=== PATIENT | male | born 1960 | race Caucasian/White ===

== ENCOUNTER 2024-11-29 08:27 | Outpatient (CLI) | payer MEDICARE, SELFPAY ==
--- NOTE | 2024-11-29 08:30 | RT.EKG_ITS ---
APPROVED REPORT Exam: Resting ECG Reason for Exam: HIGH RISK MEDICATION USE Patient Location: O HR:74 bpm ECG Measurements Heart Rate 74 AXIS SD 166 P 47 QRSd 100 QRS -54 QT 444 T 59 QTc 493 Conclusion Sinus rhythm...normal P axis, V-rate 50- 99 Left anterior fascicular block...axis(240,-40), init forces inf
== END 2024-11-29 08:28 | disposition home or self-care (01) ==
LOC: CARDOPNVT 08:27
PROVIDERS: Visit Provider Family Medicine
DX: Z79.899 Other long term (current) drug therapy (principal)
CPT/HCPCS: 93005; 93010

== ENCOUNTER 2025-02-15 09:10 | Emergency (ER) | payer MEDICARE, SELFPAY ==
[2025-02-15 09:12] VITALS: BP 142/79; PULSE 84; RESP 18; TEMP 36.4; O2SAT 96
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
== END 2025-02-15 09:43 | disposition home or self-care (01) ==
LOC: ER 09:51
PROVIDERS: Emergency Provider Emergency Medicine
DX: Z76.0 Encounter for issue of repeat prescription (principal); I10 Essential (primary) hypertension; G40.909 Epilepsy, unspecified, not intractable, without status epilepticus
CPT/HCPCS: 99282

== ENCOUNTER 2025-03-17 06:23 | Emergency (ER) | payer MEDICARE, SELFPAY ==
[2025-03-17] VITALS (71 sets, daily range): BP systolic 100–161; BP diastolic 54–117; PULSE 71–137; RESP 10–24; TEMP 36.1; O2SAT 2–100
--- NOTE | 2025-03-17 06:15 | RT.EKG_ITS ---
APPROVED REPORT Exam: Resting ECG Reason for Exam: [facility] Patient Location: E HR:104 bpm ECG Measurements Heart Rate 104 AXIS ID 185 P -15 QRSd 102 QRS -33 QT 378 T 37 QTc 498 Conclusion Sinus tachycardia...rate> 99 Incomplete RBBB and LAFB...axis(240,-40), S>R II III aVF Low voltage, precordial leads...precordial leads <1.0mV Nonspecific ST-T changes
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
[2025-03-17 06:48] LABS: Abs Immature Grans 0.03 10^3/uL (0.0-0.06); Absolute Basophil Count 0.03 10^3/uL (0.0-0.2); Absolute Eosinophil Count 0.17 10^3/uL (0.0-0.7); Absolute Lymphocyte Count 2.19 10^3/uL (1.2-3.4); Absolute Monocyte Count 0.66 10^3/uL (0.1-0.8); Absolute Neutrophil Count 4.54 10^3/uL (1.2-6.7); Basophils % 0.4 %; Eosinophils % 2.2 %; HCT 31.3 % (40.0-50.0); HGB 10.5 g/dL (13.5-17.5); Immature Grans % 0.4 %; Lymphocytes % 28.7 %; MCH 31.3 pg (27.0-33.0); MCHC 33.5 % (32.0-36.0); MCV 93 fL (80-95); MPV 10.3 fL (8.0-11.0); Monocytes % 8.7 %; Neutrophils % 59.6 %; Platelet Count 186 10^3/uL (130-400); RBC 3.36 10^6/uL (4.36-5.78); RDW 12.8 % (11.8-14.1); RDW-SD 43.4 fL; WBC 7.62 10^3/uL (4.4-10.8)
[2025-03-17 07:32] LABS: ALT 25 U/L (16-63); AST 35 U/L (15-37); Albumin 3.5 g/dL (3.4-5.0); Alkaline Phosphatase 90 U/L (46-116); Anion Gap 7.3 mmol/L (3-11); BUN 44 mg/dL (7-18); Bilirubin, Total 0.6 mg/dL (0.2-1.0); CO2 27.7 mmol/L (21.0-32.0); CREATININE 1.4 mg/dL (0.70-1.30); Calcium 9.4 mg/dL (8.5-10.1); Chloride 108 mmol/L (98-107); Estimated GFR 55.78 (mL/min/1.73m2); Glucose 102 mg/dL (74-106); Potassium 3.9 mmol/L (3.5-5.1); Sodium 143 mmol/L (136-145); Total Protein 7.4 g/dL (6.4-8.2)
[2025-03-17] MEDS: LORazepam 20 MG/10 ML VIAL IVP (07:33)
[2025-03-17] MEDS: Normal Saline Flush 10 ML SYR IVP (07:34)
[2025-03-17 07:45] LABS: ETHANOL BLOOD < 3.0 mg/dL (<10)
[2025-03-17] MEDS: LORazepam 20 MG/10 ML VIAL (07:52)
[2025-03-17] MEDS: Ketamine 500 MG/5 ML VIAL ×2 (08:10→08:18)
--- NOTE | 2025-03-17 08:38 | W.EDPROG ---
Date of service: 03/17/25 Time of Service: 08:38 Medical Decision Making Patient was received in signout from Dr. Hernandez. Patient was found down outside with a fishing pole. When he came in he was notably confused, Dr. Hernandez felt that he was hallucinating as well. Laboratory workup returned while under Dr. Hernandez's care and demonstrated no significant abnormality. Alcohol level was negative. Care was transitioned to myself while we are waiting to get CT imaging. CT scan was not performed secondary to the patient being notably noncompliant. He kept trying to get up to rip out his IV and put his pants on to leave. Unfortunately he was still notably confused. He wanted to walk back home to [place] which is 20 miles away. He kept trying to put both of his legs through a single pant leg multiple times and could not get each leg into an individual pant leg. Patient was not able to perform simple math when asked. He continued to mumble his words. Aside for the confusion though he did not demonstrate any focal deficit in a single extremity. He was certainly unsteady and certainly gave off a clinical perspective of an alcohol intoxication although his alcohol level is negative. He was also quite emotionally labile, and would oscillate between crying and sobbing towards momentary episodes of anger and frustration. Patient is certainly not medically cleared at this stage, and the exact cause of his current symptomatology is uncertain. Understanding this we did petition the patient to allow us to get the CAT scan which he continued to try to get up and leave [place]. Patient does not demonstrate clear understanding of his current status, and is not able to articulate an understanding of the risks and benefits of not getting imaging. Because of this and the lack of medical clearance at this stage I do feel that we need to make sure there is not a life-threatening etiology present for the patient. Because of this we did offer a medication to the patient to help with sedation for CAT scan. Due to the emergent situation, ketamine was given to aid in sedation for medical clearance to make sure there was no life-threatening etiology. An initial 250 mg dose was given at 2 mg/kg. Patient had minimal sedation with this. A second dose of 250 mg was given for a total of 500 mg. He tolerated this well and was resting comfortably in bed after this. Restraints were added to the bed but not used. Patient will be sent for CT imaging. Additionally he had complained of chest pain when he initially arrived and a screening EKG was performed however no troponins were added. We will add this as well. 10:19 AM Patient was reassessed at 10 AM, restraints were discontinued. He remained stable in bed but is moaning and somewhat aggravated. CT imaging was performed and demonstrates no acute process for the head or chest, aside for potential atelectasis versus pulmonary contusion.. Patient no longer requires restraints as he is no longer combative, trying to rip out his IV, or resisting CT imaging. 5:[address] imaging returned negative for acute process. Laboratory workup was notably benign with no white count or bandemia. He has no nuchal rigidity or neck stiffness to suggest meningitis. Electrolytes are all stable. Troponins normal. EKG shows no evidence of STEMI. Urinalysis negative for infection. Urine drug screen positive for methadone, benzos, and THC. Patient slept for about 6 hours. After which point he did awake. He slightly confused, initially could not tell me the year or month. He was demanding to leave, however he was also redirectable, and continued to demonstrate notable emotional lability. We did have telepsych come and evaluate the patient. Dr. Kwong has evaluated the patient and does not feel that the patient has competency at this time or good decision making capacity. Dr. Vanesa Garcia from the methadone clinic did come up, and she states that this does not appear the to be the patient's baseline. She states that normally he does demonstrate evidence of competency, but this episode today demonstrates a lack of capacity compared to his baseline. I certainly agree that the patient does not have decision-making capacity at this time. He continually states that he just wants to leave and go home, however he states that home is 20 miles away and he will be able to walk there. I worry for the patient's safety that it would not be appropriate for him to leave in this current status. One of my chief concerns could be that there may be a component of polypharmacy that brought about his initial symptoms, however I also worry that he may have had a seizure which led to him hitting his head and getting a concussion which are bringing about the symptoms that he has at this time. Regardless, I do not feel that a disposition home is appropriate. Telepsychiatry recommends observation overnight, and if his symptoms persist that he then transitions to get an MRI if he remains in this atypical state. He does not have nuchal rigidity or neck stiffness to suggest meningitis. He does not have a fever to suggest infection. Alcohol level is negative. I did review the case with the hospitalist Dr. Cartwright, and at this time it is felt that the best place for the patient would be the emergency department overnight as there is not a clear medical necessitated reason for inpatient admission. We discussed the case with the nursing team, nursing shipwright supervisor, and charge nurse. At this time the patient remains notably redirectable and we will transition him to zone B. I will start his regular home medications including his Keppra. We will let him rest here tonight, and reassess again in the morning. Mental health was also brought on board and Marley personally interviewed the patient. She also does not feel that he would be appropriate for discharge home and would like to reassess in the morning. Patient will be transition to zone B, and signed out to my colleagues for reassessment in the morning. FINDINGS: Ventricles and Extra axial spaces: Normal in size and morphology for the patient's age. Hemorrhage: None. Cerebral parenchyma: No evidence of an acute territorial infarct. No acute mass effect. Midline shift: None. Brainstem/Cerebellum: Normal. Calvarium: Normal. Visualized Paranasal sinuses/Mastoids: Clear. Soft Tissues: Unremarkable. IMPRESSION: No acute intracranial process. FINDINGS: The examination is limited due to patient motion artifact. There is also artifact due to the position of the patient's upper extremities. Tracheobronchial tree: Patent where visualized. No bronchiectasis. Pulmonary parenchyma: There are small bilateral upper lobe ground-glass opacities. No architectural distortion. Pulmonary Arteries: Due to the timing of the bolus, there is poor opacification of the pulmonary arteries. The examination is inadequate for evaluation of pulmonary emboli. No large central pulmonary embolism is present. Mediastinum and Ankita: No dominant adenopathy or fluid collection. The esophagus is unremarkable. Visualized thyroid gland: Unremarkable. Pleura: No effusion or pneumothorax. Heart: The heart is not dilated. There is mild coronary artery calcification. No pericardial effusion. Aorta: Thoracic aorta non-dilated. Upper abdomen: Status post cholecystectomy. There is dilatation of the bile ducts which may be secondary to the cholecystectomy. Soft tissues: Mild bilateral gynecomastia. Bones: Within normal limits for the patient's age. IMPRESSION: 1. The examination is limited by artifact from the patient's upper extremities and patient motion. 2. Bilateral upper lobe ground-glass opacities. This may represent atelectasis, contusions or pneumonia. Please correlate clinically. 3. There is poor opacification of the pulmonary arteries and aorta limiting evaluation. Within the limits of the examination, there is no large central pulmonary embolism. 4. No acute displaced fracture. Discharge Plan Discharge Details Chief Complaint: AMS/LOC Clinical Impression: Altered mental status, Acute confusion, Seizure disorder Primary Care Provider: Unknown,Unknown ED Provider: Cuong Garber Home Meds and New Rx's Prescriptions: No Action levetiracetam 750 mg tablet 750 mg PO BID Patient Comments: TAKE 1 TABLET BY MOUTH TWICE DAILY alprazolam [Xanax] 1 mg tablet 1 mg PO BID PRN Patient Comments: TAKE 1 TABLET BY MOUTH TWICE DAILY NEEDED losartan 50 mg tablet 50 mg PO DAILY Patient Comments: TAKE ONE TABLET BY MOUTH EVERY DAY methadone 10 mg/5 mL solution 125 mg PO QPM Patient Comments: Verified with Dr Montoya at [facility] 03/17/2025 Rx Instructions: in addition to AM dose methadone 10 mg/5 mL solution 135 mg PO QAM Patient Comments: Verified with Dr Montoya at [facility] 03/17/2025 Rx Instructions: IN ADDITION TO PM DOSE Restraint Face to Face Time of Face to Face Face to Face: Time of Face to Face: 10:00 Patient's Immediate Situation Requiring Restraints/Seclusion: Harm to Patient Patient Response to Restraints: Remains Agitated and Restless Need for Continuation of Restraints Has Been Assessed: Restraints Terminated
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
--- NOTE | 2025-03-17 09:00 | DI.CT_ITS ---
Exam(s) CT CHEST PE CTA EXAM: CT CHEST PE CTA CLINICAL HISTORY: Chest discomfort, altered, fall/trauma. TECHNIQUE: Imaging Protocol: Axial CT angiography was performed with multi- slice acquisition and multi-planar and/or 3D reconstructions. Lung Computer Aided Detection (CAD) was utilized. CONTRAST MATERIAL: Intravenous: Omnipaque 350 contrast volume:100 mL COMPARISON: No exams were available for comparison FINDINGS: The examination is limited due to patient motion artifact. There is also artifact due to the position of the patient's upper extremities. Tracheobronchial tree: Patent where visualized. No bronchiectasis. Pulmonary parenchyma: There are small bilateral upper lobe ground-glass opacities. No architectural distortion. Pulmonary Arteries: Due to the timing of the bolus, there is poor opacification of the pulmonary arteries. The examination is inadequate for evaluation of pulmonary emboli. No large central pulmonary embolism is present. Mediastinum and Ankita: No dominant adenopathy or fluid collection. The esophagus is unremarkable. Visualized thyroid gland: Unremarkable. Pleura: No effusion or pneumothorax. Heart: The heart is not dilated. There is mild coronary artery calcification. No pericardial effusion. Aorta: Thoracic aorta non-dilated. Upper abdomen: Status post cholecystectomy. There is dilatation of the bile ducts which may be secondary to the cholecystectomy. Soft tissues: Mild bilateral gynecomastia. Bones: Within normal limits for the patient's age. IMPRESSION: 1. The examination is limited by artifact from the patient's upper extremities and patient motion. 2. Bilateral upper lobe ground-glass opacities. This may represent atelectasis, contusions or pneumonia. Please correlate clinically. 3. There is poor opacification of the pulmonary arteries and aorta limiting evaluation. Within the limits of the examination, there is no large central pulmonary embolism. 4. No acute displaced fracture. RADIATION DOSE DELIVERED: 662.55mGy.cm Total DLP DATA REPOSITORY: All CT scans at this facility are submitted to the National Radiology Data Registry (NRDR) Dose Index Registry (DIR) with the [employer] (ACR). RADIATION OPTIMIZATION: All CT scans at this facility use at least one of these dose optimization techniques: automated exposure control; mA and/or kV adjustment per patient size (includes targeted exams where dose is matched to clinical indication); or iterative reconstruction.
[2025-03-17] MEDS: Normal Saline - Diluent 50 ML VIAL IJ (09:02)
[2025-03-17 09:07] LABS: Troponin I 30 ng/L (<or=76)
[2025-03-17 09:24] LABS: Bilirubin Negative (Negative); Blood Trace-intact (Negative); Clarity Clear (Clear); Glucose Negative (Negative); Ketones Negative (Negative); Leukocyte Esterase Negative (Negative); Nitrite Negative (Negative); Specific Gravity 1.025 (1.005-1.025); Urobilinogen 0.2 mg/dL (Up to 0.2); pH 5.5 (5-8)
[2025-03-17 09:44] LABS: Bacteria Rare HPF (Negative); Crystals Negative HPF (Negative); Epithelial Cells Negative HPF (Negative); Mucus Trace (Negative); WBC Negative HPF (0-5)
[2025-03-17 09:45] LABS: C & S Indicated? No; Casts 0-2 Hyaline LPF (Negative)
--- NOTE | 2025-03-17 09:53 | RESPIRATORY ---
03/17/2025 Called to ED for Ketamine administration. Ambu bag, oral airways, nasal airway, NRB set up at bedside. ETCO2 placed on pt and oxymask for preoxygenation. Pt brought to CT with no complications for respiratory. Pt maintained airway and breathing. Pt brought back to ED and vitals before leaving heart rate 117, ETCO2 64, SPO2 96% on 1L. Pt was confused but awake when leaving.
[2025-03-17 10:12] LABS: Troponin I 30 ng/L (<or=76)
[2025-03-17 10:21] LABS: BE (Venous) 2 mmol/L (-2-3); HCO3 (Venous) 27 mmol/L (23-28); O2 Sat (Venous) 87 %; TCO2 (Venous) 25 mmol/L (24-29); pCO2 (Venous) 44 mmHg (41-51); pH (Venous) 7.39 (7.31-7.41); pO2 (Venous) 53 mmHg
--- NOTE | 2025-03-17 10:24 | NUR.NOTE ---
troponin orders were not placed until 0843 1st trop resulted from initial draw second trop cancelled 3rd trop done on new IV Nursing Note:
[2025-03-17 10:38] LABS: Ammonia 22 umol/L (11-32)
[2025-03-17] MEDS: THIAMINE 100 MG in Normal Saline 100 ML 200 MG IVPB (10:38)
--- NOTE | 2025-03-17 15:46 | NUR.NOTE ---
Nursing Note: This rn received wendy from Dr. Vanesa Garcia at [facility]. Provider stated that pt is has a split dose of methadone and is able to receive 125 mg of Methadone but is not able to receive more at this time. This rn informed Dr. Garber or conversation.
[2025-03-17 16:02] LABS: *AMPHETAMINES SCREEN URINE Negative (Negative); *BARBITURATES SCREEN URINE Negative (Negative); *BENZODIAZEPINES SCREEN URINE Positive (Negative); Cannabinoids THC Positive (Negative); Cocaine Screen,Urine Negative (Negative); METHADONE URINE SCREEN Positive (Negative); OPIATES URINE SCREEN Negative (Negative); Tricyclic Antidepressants Negative (Negative)
--- NOTE | 2025-03-17 16:28 | W.TELEPSYCH ---
Date of service: 03/17/25 Time of Service: 16:29 Summary Note PSYCHIATRY CONSULT NOTE: INITIAL EVALUATION Date/Time:?03/17/2025 4:28:11 PM Name:Calli Brody :?1960 Location of the patient:?[facility] ED Consulting Array Clinician:?Cordelia Kwong Location of the clinician:?[place] Length of Consult:?30 mins SUMMARY 64-year-old male, with remitted opioid use, with no history of self-harming/suicidal behavior/violent behavior, with unknown history of psychiatric illness, unknown current excessive drug use, unknown history of psychiatric hospitalization, arrived via EMS for altered mental status. Based on evaluation although patient appears to be alert and oriented times 3, he appeared in the emergency room initially for confusion and had to be medicated for agitation. Patient during evaluation is restless, he does not appear to know what the treatment plan is wants to leave against medical advice, there's no clear understanding of the reason for his confusion on Initial presentation, patient does not remember the events that led him to come here. At this time patient does not have the capacity to make medical decisions. And he's not safe for discharge in his current state of being restless and disorganized. But since patients mental status is improving would observe him for the next 24 hours to see if he continues to improve.Patient does not appear to be at acute risk to self or others due to psychiatric illness or to require inpatient psychiatric hospitalization. Working Diagnoses:? 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 CPT Codes:?61805 - Psychiatric Diagnostic Evaluation with Medical Services PLAN Disposition:?Hold for collateral and/or further assessment Capacity: Does patient have a surrogate medical decision maker?: No General Medical Decision-Making: Patient does not understand the medical reason why they are in the hospital, appears to have baseline cognitive deficits that are likely to affect medical decision making. Please note this evaluation does not comment on patient?s overall competency, which is a legal determination. Patient would benefit from appointing a surrogate medical decision maker/medical POA for medical decision-making. Please pursue legal means (such as guardianship) to do so where necessary. Patient does not appear to capacity to make medical decision. Observation level ? Psychiatric 1:1 needed??Continue psych 1:1 Work-up:? Pharmacological:? haloperidol 5 mg PO/IM Q6h + lorazepam 2 mg PO/IM Q6h + diphenhydramine 50 mg PO/IM Q6h PRN agitation Is patient psychotic? - No; Informed consent: Patient is unable to understand risks benefits of or consent to above recommended psychiatric medications in their current mental state. No surrogate decision maker is available. Without recommended medication patient will likely deteriorate further and possibly place themselves or others at risk. Patient is not legally compelled to take recommended medication at this time. Follow up needed while in the hospital??Q24h Other:? Parts of this note were dictated using voice recognition software and may contain small irregularities and grammatical errors which are unintentional. If questions arise about the psychiatric care of this patient, please call the [facility]?to request a follow-up consult. ?Please do not contact me individually through the EMR chat as I am not?regularly logged on to?this system. The psychiatrist for the follow-up visit may be a different psychiatrist Discussed plan with onsite steam and gas turbines assembler:?Yes - Spoke with Dr. Cuong Garber MD HISTORY This evaluation was conducted remotely with the assistance of onsite staff via HIPAA-compliant video call. Patient consented to proceed with the telehealth visit. Requested by:? Sources of information:?Patient, medical record History of Present Illness:?64-year-old male, living alone, single, unemployed, with remitted opioid use, with no history of self-harming/suicidal behavior/violent behavior, with unknown history of psychiatric illness, unknown current excessive drug use, unknown history of psychiatric hospitalization, arrived via EMS for altered mental status. UDS negative, Alcohol undetectable. In the hospital, patient has been physically restrained, on a psychiatric 1:1. Patient is a 64 year old male who was reportedly found down outside the road with the fishing pole. Patient initially came to the hospital confused and he was agitated. And had to be placed on restrained. Patients alcohol level is noted to be negative. Patient reportedly had stated that he was fishing and a bear tried to attack him. Patient also was reportedly walking 20 miles back home. He was a bit acting bizarre in the hospital as he kept trying to put both legs through a single pant. He was at times crying and sobbing. Patient was seen and evaluated. This time he is noted to be restless but he is oriented to place, person, time, he knows why he's in the hospital. He states that he may have had a seizure. He does keep consistent with the claims that he went fishing and was walking home. He states that he lives alone and does not have much family as his parents . He denies suicidal homicidal ideations. Patient denies history of suicide attempt or inpatient psych hospitalization. He does not take any psychiatric medications but he is able to tell me that he takes xanax and methadone. Patient currently does not want to be in the hospital and wants to go home.. Collateral ContactedNo-- no acute safety issues identified. PSYCHIATRIC REVIEW OF SYSTEMS (symptoms in past two weeks) Pertinent Positives:?irritability/see hpi Pertinent Negatives:? PSYCHIATRIC HISTORY Past Psychiatric Diagnoses/Problems:?unknown past psychiatric diagnoses Psychiatric Treatment:?Hospitalizations:?unknown past psychiatric hospitalizations ???Other Past treatment:?none ???Current treatment:?no reported current psychiatric treatment Drug/Alcohol History ???Current excessive drug/alcohol use:?unknown ???Past excessive drug/alcohol use:?opioid ???Drug/alcohol use comment:?Treatment:?methadone maintenance ???Withdrawal symptoms:?none ???UDS results:?UDS negative ???BAL results:?undetectable ???Active withdrawal Protocol:? Stressors:?none Trauma:?none Family Psychiatric History:?none HEALTH HISTORY Medical Problems:? seizure disorder Is patient linked with PCP??no Psychiatric and other clinically relevant medications:? Allergies/Adverse Medication Reactions:?NKDA Physical Findings:?no clinically significant changes in vital signs DEMOGRAPHICS/SOCIAL HISTORY Gender:?male Living Situation:?living alone Relationship Status:?single Education:?unknown Employment:?unemployed Social Support Network:?none Legal History:?none Special Considerations:?none RISK EVALUATION Suicidality/self-injury:?no history of suicidal/self-harming behavior Primary Suicide Screening (PSS-3) 1. In the past two weeks, have you felt down, depressed, or hopeless??NO 2. In the past two weeks, have you had thoughts of killing yourself??NO 3. In your lifetime, have you ever attempted to kill yourself??NO 3a. Within the past 6 months??NO ESS-6 Secondary Screen ( If #2 is yes or #3a is yes within the past 6 months, then complete secondary screen) 1. Positive on PSS-3 questions 2 & 3 ? active suicidal ideation with a past attempt??Screen not applicable 2. Have you been thinking about how you might kill yourself??Screen not applicable 3. Have you had some intention of acting on your thoughts??Screen not applicable 4. Lifetime psychiatric hospitalization??Screen not applicable 5. Has drinking or substance abuse ever been a problem for you??Screen not applicable 6. Current irritability, agitation, or aggression??Screen not applicable PSS-3/ESS-6 Secondary Screen Scoring:?Low Risk-PSS3 screen negative PSS-3/ESS-6 Scoring Interpretation Legend PSS-3 screen incomplete [Blank PSS-3 questions #2 OR #3a] PSS-3 screen unable to assess [Unable to Assess responses on PSS-3 questions #2 AND #3a] Mild [No current attempt AND No suicide plan or intent AND Score (0-2)] Moderate [No current attempt AND Active suicidal ideation with plan or intent (not both) OR Score (3-4)] Severe [Current attempt OR Suicide plan and intent OR Score (5-6)] HI/Violence/Property Destruction:?no history of violent/aggressive behavior Access to Firearms:?none Grave disability/Poor self-care:?no Psychosis:?No Protective Factors:? High Utilization Criteria:? Signs of Secondary Gain:? MENTAL STATUS EXAM Appearance and Attire:? Normal Psychomotor agitation:? No abnormality Attitude and behavior:? Restless, Guarded Speech:? No abnormality Mood:? Hypomanic Affect:? Constricted Thought Process:? Coherent, Vague Thought content:? No abnormality Perception:? No hallucinations Intelligence:? Low average Abstraction:? [place] Language:? Impaired to Naming Orientation:? Oriented to person, Oriented to place, Oriented to time Sensorium:? Distractible Knowledge:? Mild impairment Memory:? Impaired to Immediate recall Insight:? Lack of awareness of problems Judgment:? Impaired in response and decision making, Impaired in responses to current situation and behavior SUMMARY RISK ASSESSMENT Current Suicide Risk Elevated??PSS-3/ESS-6 Scoring: Low Risk-PSS3 screen negative? Current Violence Risk Elevated??No Issues with ability to care for self.?Yes SAFE-T Cordelia Kwong MD Psychiatrist, [facility]
--- NOTE | 2025-03-17 16:30 | NUR.NOTE ---
Addendum entered by Ingrid Macdonald 03/17/25 16:34: Patient stated that the dogs are aggressive. Original Note: Called [facility] to find out what to do about his 2 black labs tied to a tree in the [place] where he is living. He is unable to give a specific location. They said to call the Manager Travel; [place]. [phone] Nursing Note:
--- NOTE | 2025-03-17 19:04 | PDOC.MHCN ---
Date of service: 03/17/25 Time of Service: 19:07 Mental Health Emergency Note Release [facility] release signed:: No Reason for Visit The claim is unknown to [facility] and has never received services for us. Her report of [facility]. He is homeless and presented this morning. after being found in the [place] with a fishing pole and reporting that he was attacked by a bear. Further exploration disclosed that the client may have had a seizure where he potentially hit his head requiring medical attention. [facility] had requested an in-person assessment however, upon arrival the provider, Dr. Garber felt he was unable to make those decisions at this time and the tele psych doctor also agreed. This clinician did not formally assess this client she only observed and listened to the assessment being provided by the tele psych psychiatrist. In the last 2 weeks has the pt presented for ES prior to today?: Unknown Client Information Client is: New Asssessment/Mental Status Appearance: Disheveled and Poor hygiene Attitude: Cooperative and Demanding Behavior: Psychomotor retardation Speech: Pressured Affect: Flat Mood: Anxious Thought process: Goal directed Attention: Wandering Perception: Derealization Orientation: Fully orientated Memory: Intact Insight: Poor Judgement: Poor Additional Issues: Assaultive/Threatening Behavior: Yes Medical Concerns: Yes Client engaged in active self harm w/weapon: No Threatening to run away: No Child reported abuse/neglect: No Voluntarily presenting for services: No Domestic violence is a concern: No Extreme Psychosis or extreme behavior is present: Yes Impression The client is a 64-year-old single male who originates from [place] and is reported. is reported to be in [place] to deal with issues relating to his mother's and his brother. No screening tools were able to be completed due to his lack of awareness. The client presents sitting in a hospital chair with his bed mattress on the floor. He is wearing camo pants, work boots and a hospital scrub top. The client is observed as he is assessed by the psychiatrist via tele [employer]. He reports that he lives at [facility] in [place], [place]. It is reported that he has two black labs that are vicious and are tied to a tree while he went fishing this morning. The dogs seem to be his main concern at this time. The client denied any psychiatric history. He denied suicidal ideation or homicidal ideation. He does not know the date, however, does know it is February and 2024 and knows the energy operations vice president. He reported that he was attacked by a bear and wrestled it showing how he did it in movement. Per nursing and Dr. Shirlene Garcia arrived today to assess and reported this was not the client's baseline and expressed concern. through talking with Dr. Garber this clinician expressed concern also for his dogs despite being vicious being out in a potential storm and he agreed to have the [employer] outreach to animal control to see if they could locate them and keep them safe. Nursing also reports that the client has been receiving a prescription of Xanax from his doctor in [place] by the name of Dr. Kevin Dick ([phone] or [phone]) that is prescribed TID. This is concerning due to the Methadone dosing he is on, and Dr. Garcia agreed per nursing to outreach to this provider. Plan/Disposition Recommended Disposition: Other. Plan: The client will be admitted medically and if needed [facility] will outreach again for a follow up assessment and disposition. Person reported agreement to plan: No Reports/communication Outcome discussed with: ED/Personnel
--- NOTE | 2025-03-17 21:51 | ED.PROG_ITS ---
Date of service: 03/17/25 Time of Service: 21:51 Medical Decision Making I was called to see the patient after he fell out of bed and smacked his head on the ground per nursing. I assessed the patient was laying in his bed crying holding the top of his head. He has a small frontal scalp hematoma, no palpable skull fractures, given the pain he describes as severe I will obtain a CT head to exclude traumatic hemorrhage CT negative. Patient stable and has no new pain elsewhere. Discharge Plan Discharge Details Chief Complaint: AMS/LOC Clinical Impression: Altered mental status, Acute confusion, Seizure disorder, Blunt head trauma Primary Care Provider: Unknown,Unknown ED Provider: Thomas Wong Home Meds and New Rx's Prescriptions: No Action levetiracetam 750 mg tablet 750 mg PO BID Patient Comments: TAKE 1 TABLET BY MOUTH TWICE DAILY alprazolam [Xanax] 1 mg tablet 1 mg PO BID PRN Patient Comments: TAKE 1 TABLET BY MOUTH TWICE DAILY NEEDED losartan 50 mg tablet 50 mg PO DAILY Patient Comments: TAKE ONE TABLET BY MOUTH EVERY DAY methadone 10 mg/5 mL solution 125 mg PO QPM Patient Comments: Verified with Dr Montoya at [facility] 03/17/2025 Rx Instructions: in addition to AM dose methadone 10 mg/5 mL solution 135 mg PO QAM Patient Comments: Verified with Dr Montoya at [facility] 03/17/2025 Rx Instructions: IN ADDITION TO PM DOSE
--- NOTE | 2025-03-17 22:04 | DI.CT_ITS ---
Exam(s) CT HEAD WO EXAM: CT HEAD WO CLINICAL HISTORY: fall, pain. TECHNIQUE: Imaging Protocol: Axial computed tomography images with coronal and sagittal reformatted images were created and reviewed COMPARISON: CT CT HEAD WO from 03/17/2025 FINDINGS: Ventricles and Extra axial spaces: Normal in size and morphology for the patient's age. Hemorrhage: None. Cerebral parenchyma: No evidence of acute infarct or mass. Mild atrophy. Midline shift: None. Brainstem/Cerebellum: Normal. Calvarium: Normal. Visualized Paranasal sinuses:Clear. Mastoids: Clear. Soft Tissues: Unremarkable. ORBITS: Unremarkable. PITUITARY: Not enlarged. IMPRESSION: No acute intracranial process. The preliminary [facility] report was reviewed. RADIATION DOSE DELIVERED: 867.82mGy.cm Total DLP DATA REPOSITORY: All CT scans at this facility are submitted to the National Radiology Data Registry (NRDR) Dose Index Registry (DIR) with the [employer] (ACR). RADIATION OPTIMIZATION: All CT scans at this facility use at least one of these dose optimization techniques: automated exposure control; mA and/or kV adjustment per patient size (includes targeted exams where dose is matched to clinical indication); or iterative reconstruction.
--- NOTE | 2025-03-17 22:10 | DI.[facility]_ITS ---
PROCEDURE INFORMATION: Exam: CT Head Without Contrast Exam date and time: 03/17/2025 9:55 PM Age: 64 years old Clinical indication: Injury or trauma; Fall; Blunt trauma (contusions or hematomas); Consciousness not specified; Injury date: 03/17/25; Fell out of bed and hit head, pain TECHNIQUE: Imaging protocol: Computed tomography of the head without contrast. Radiation optimization: All CT scans at this facility use at least one of these dose optimization techniques: automated exposure control; mA and/or kV adjustment per patient size (includes targeted exams where dose is matched to clinical indication); or iterative reconstruction. COMPARISON: CT HEAD WO 03/17/2025 8:30 AM FINDINGS: Brain: There is no acute intracranial hemorrhage, mass effect or midline shift. There is no large acute territorial cerebral infarct. Cerebral ventricles: No ventriculomegaly. Paranasal sinuses: Visualized sinuses are unremarkable. No fluid levels. Mastoid air cells: Visualized mastoid air cells are well aerated. Bones: Unremarkable. No acute fracture. Soft tissues: Unremarkable. IMPRESSION: No acute intracranial hemorrhage, mass effect or midline shift. Dictated and Authenticated by: Mary Maya MD. Orderin Judith Guzman MD
[2025-03-17] MEDS: levETIRAcetam 500 MG TAB 750 MG PO (22:58)
[2025-03-18] MEDS: levETIRAcetam 500 MG TAB 750 MG PO (08:52)
[2025-03-18] MEDS: Losartan 50 MG TAB PO (08:52)
[2025-03-18] MEDS: Methadone Liquid 10 MG/ML 135 MG PO (08:55)
[2025-03-18 09:05] VITALS: BP 131/87; PULSE 82; RESP 20; TEMP 36.2; O2SAT 94
--- NOTE | 2025-03-18 09:29 | ED.PROG_ITS ---
Date of service: 03/18/25 Time of Service: 14:47 Medical Decision Making Patient was seen and assessed yesterday, please refer to previous note. Critical care documentation was accidentally not placed on initial note by myself, but added here. Patient slept well throughout the night, at this time this afternoon he is woken up, he has been eating and drinking well, I personally reassessed the patient and he demonstrates a much clearer sensorium. He demonstrates intact decision-making capacity. He states he just want to go back into the [place] where his dogs are, be with them. He was offered resources, and he states that he will get his help through his friend whom he has his phone contact number for. We did contact a friend and the friend is willing to pick him up and help him. We did have the patient reassessed by mental health, they to feel that he is certainly much closer to his functional baseline now, and certainly not a candidate to be held here involuntarily. He continues to deny homicidal or suicidal ideations. He denies any other complaints at this time and is asking to leave. As the patient does demonstrate functionality and capability now, and no evidence of significantly altered mental status, or severe confusion, he is ANO x 3, he is stable for discharge. Resources were offered. Patient has declined. Patient will be discharged home with his friend. Uncertain as to what the initial cause of his symptomatology was, however I suspect he may have had a seizure, and got a concussion which caused the altered sensorium initially. There could be a component of polypharmacy, as well as an emotional stress that could be worsening his symptoms. Regardless, we have recommended that he stops taking the Xanax, stick with his other medications, follow-up closely with his PCP. I have extensively reviewed the treatment plan and discharge instructions with the patient. I have addressed all patient concerns at this time. The patient was made aware of what symptoms to monitor for that would warrant a return to the emergency department. Discussed the plan with the patient, they demonstrate verbal understanding and agreement with our assessment and plan at this time. The documentation in this chart was dictated using [employer] dictation software. Please excuse any dictation errors. Critical Care Time Critical Care Time Critical Care Time: Yes Total Critical Care Time: 90 Attestation: Upon my evaluation, this patient had a high probability of imminent or life- threatening deterioration, which required my direct attention, intervention, and personal management. I have personally provided minutes of critical care time exclusive of time spent on separately billable procedures. Time includes review of laboratory data, radiology results, discussion with consultants, and monitoring for potential decompensation. Interventions were performed as documented. (Of note critical care was performed yesterday but I did not document on the previous note. Critical care is being updated now on this note. Critical care time was performed on 03/17/2025 and was secondary to agitation, aggression, and need for sedation.) Discharge Plan Disposition Patient Disposition: Home Discharge Details Clinical Impression: Acute confusion, Seizure disorder, Blunt head trauma Primary Care Provider: Unknown,Unknown ED Provider: Cuong Garber Home Meds and New Rx's Prescriptions: Discontinued alprazolam [Xanax] 1 mg tablet 1 mg PO BID PRN Patient Comments: TAKE 1 TABLET BY MOUTH TWICE DAILY NEEDED No Action levetiracetam 750 mg tablet 750 mg PO BID Patient Comments: TAKE 1 TABLET BY MOUTH TWICE DAILY losartan 50 mg tablet 50 mg PO DAILY Patient Comments: TAKE ONE TABLET BY MOUTH EVERY DAY methadone 10 mg/5 mL solution 125 mg PO QPM Patient Comments: Verified with Dr Montoya at [facility] 03/17/2025 Rx Instructions: in addition to AM dose methadone 10 mg/5 mL solution 135 mg PO QAM Patient Comments: Verified with Dr Montoya at [facility] 03/17/2025 Rx Instructions: IN ADDITION TO PM DOSE Discharge Instructions Instructions: Seizures, Adult ED Additional Instructions: At this time you have returned to a stable baseline. Please stop taking your Xanax. Please continue taking your other medications. Please follow-up closely with your primary care provider. Please use the resources that we have provided you on an outpatient basis. If you notice any worsening of your symptoms, or any new symptoms such as vomiting, diarrhea, fever, chills, shortness of breath, chest pain, numbness, weakness, or fainting , please return immediately to the emergency department for reevaluation. Please follow up with your primary care provider as soon as possible for reassessment and reevaluation. As always, it was a pleasure participating in your medical care today. Referrals: Antonnia Newsome [ NON-[facility] STAFF PHYSICIAN, Medicine]
--- NOTE | 2025-03-18 12:47 | PDOC.CMPRO ---
Date of service: 03/18/25 Time of Service: 12:47 Care Management Progress Note Progress Note Text Progress Note Text: CM huddled with [facility] and [facility] staff to discuss Ronald's plan of care. Per RN, Ronald's mentation has significantly improved from yesterday. Ronald spoke to a friend, Jonathan, on the phone today; Jonathan plans to provide transport for Ronald. Per [facility], Ronald is denying SI/HI, which he has been consistently denying, per report. He was cleared by [facility] after their assessment. Ronald has been cleared by [facility], and medically cleared, and will discharge to the community. His friend, Jonathan, will drive him home. CM will continue to follow. Social Determinants of Health Screening Will the Patient Participate in the Screening?: Unable to obtain
--- NOTE | 2025-03-18 15:04 | PDOC.MHCN_ITS ---
Date of service: 03/18/25 Time of Service: 15:05 PHQ-9 Over the last 2 weeks, how often have you been bothered by any of the following problems? 1. Little interest or pleasure in doing things: not at all 2. Feeling down, depressed, or hopeless: not at all 3. Trouble falling or staying asleep, or sleeping too much: not at all 4. Feeling tired or having little energy: not at all 5. Poor appetite or overeating: not at all 6. Feeling bad about yourself - or that you are a failure or have let yourself and your family down: not at all 7. Trouble concentrating on things, such as reading the newspaper or watching television: not at all 8. Moving or speaking so slowly that other people could have noticed? - Or the opposite - being so fidgety or restless that you have been moving around a lot more than usual: not at all 9. Thoughts that you would be better off or of hurting yourself in some way: not at all Total score: 0 If you checked off any problems, how difficult have these problems made it for you to do your work, take care of things at home, or get along with other people?: not difficult at all Source: Developed by Drs. Vince Odom, Lisa Villa, Ramos Matta and colleagues, with an educational mitzi from [employer]. Suicide Severity Rate CSSRS Have you wished you were or wished you could go to sleep and not wake up?: No Have you actually had any thoughts of killing yourself?: No CSSRS3 Have you ever done anything, started to do anything or prepared to do anything to end your life?: No Screening Score Total Score: 0 Screening: Negative Mental Health Emergency Note Release [facility] release signed:: Yes Reason for Visit The client is new to [facility] and completed intake today. Per his report he has never been hospitalized or had any mental health services. He has no professional supports other than [facility] and he was last seen yesterday by his methadone provider on 03.17.25 while at the ED. In the last 2 weeks has the pt presented for ES prior to today?: Unknown Client Information Client is: New Well Housed: No,status: Homeless Non Suicidal Self Injury Current: No History: No Safety Risk/Harm to Self or Others Current Ideation to Harm Self or Others: No Risk: Does risk to harm exist?: No Risk: Low Risk Duty to warn indicated: No Asssessment/Mental Status Appearance: Disheveled Attitude: Cooperative Behavior: Unremarkable Speech: Normal Affect: Cogruent with mood Mood: Sad, Stressed and Anxious Thought process: Goal directed Hallucinations: No Delusions: No Attention: Unremarkable Perception: Not impaired Orientation: Fully orientated Memory: Intact Insight: Fair Judgement: Good Neurovegetative Symptoms Sleep: Increase Appetitie: No change Interests: No change Energy: No change Libido: No change Substance Use: Do you use nicotine?: No Have you used substances in the last 7 days?: No Additional Issues: Assaultive/Threatening Behavior: No Medical Concerns: No Client engaged in active self harm w/weapon: No Threatening to run away: No Child reported abuse/neglect: No Voluntarily presenting for services: Yes Domestic violence is a concern: No Extreme Psychosis or extreme behavior is present: No Impression The client is a 64-year-old, disabled, single, male who is homeless in [facility]. He has two dogs and reported that he built a senior care in the [facility] for him and his dogs. He uses He/Him pronouns. All underrepresented categories were honored during this assessment. The client engaged in all screening tools including the CSSRS and no CAMS was needed. The client presents sleeping very soundly when this clinician arrived. Despite calling his name several times and shaking his leg he did not arouse. His nurse came in and was able to wake him and help him sit up to meet with this clinician. He makes little eye contact and his words are a bit mumbled where this clinician would have to ask him to repeat and he did so without incident. He is presenting as more insightful today but still has a slow reaction to some questions. The client is fully oriented. The client reported that he is at the ED after being chewed up by a bear. He is extremely emotional about this event as well as losing his parents and brother who passed 5 years ago per his report, which is expected. It is observed him having significant marinelli on his arms from the bear incident. The client reports concern for his two lab dogs who were left behind. He shared some concerns about people who harass him and physically hurt him, insult and talk down to him including screaming and cursing and threaten to harm him. He stated that he fights with people all the time because they do thee things to him. He reports a need for housing however, reports he has no transportation and his phone hardly works. It is unclear how he is able to charge his phone or get necessities as he also states he has no natural supports. Case management would be helpful however, he is unable to meet with case management and it is not recommended that anyone visit him on sight if there are angry bears to worry about. Resources Reosurces reviewed and given:: 988 Plan/Disposition Recommended Disposition: [facility] Services (If he could find a way to get to the office he would benefit from case management to get housing support.) [facility] Services: Other. Plan: The client will be discharged today as there is nothing to hold him on and he wants to leave. He has a friend who is willing to come pick him up and get him home safely. It was discussed to see if the friend could support the client in making the connections with the community supports. The client was unable to complete a safety plan. Person reported agreement to plan: Yes Reports/communication Outcome discussed with: ED/Personnel
[2025-03-18 15:32] VITALS: BP 108/52; PULSE 96; RESP 18; O2SAT 96
== END 2025-03-18 15:46 | disposition home or self-care (01) ==
PROVIDERS: Emergency Medicine; Emergency Provider Student in an Organized Health Care Education/Training Program
DX: R41.0 Disorientation, unspecified (principal); S09.8XXA Other specified injuries of head, initial encounter; I45.2 Bifascicular block; G40.909 Epilepsy, unspecified, not intractable, without status epilepticus; I10 Essential (primary) hypertension; F11.20 Opioid dependence, uncomplicated; W06.XXXA Fall from bed, initial encounter; Y93.89 Activity, other specified; Y92.230 Patient room in hospital as the place of occurrence of the external cause
CPT/HCPCS: 00123; 71275; 80053; 80307; 82805; 82962; 93005; 96127; 96365; 96375; 99285; G0378; 70450; 80177; 80320; 81003; 81015; 82140; 83735; 84484; 85025; 93010; J2060; J3411

== ENCOUNTER 2025-08-29 09:39 | Emergency (ER) | payer MEDICARE, SELFPAY ==
[2025-08-29 09:47] VITALS: BP 150/99; PULSE 89; RESP 14; TEMP 36.6; O2SAT 98
--- NOTE | 2025-08-29 09:58 | W.ED.GENAD ---
Discharge Plan Disposition Patient Disposition: Home Condition: Stable Discharge Details Clinical Impression: Medication refill Primary Care Provider: Unknown,Unknown ED Provider: Humera Orr Home Meds and New Rx's Prescriptions: New levetiracetam [Keppra] 750 mg tablet 750 mg PO BID Qty: 60 1RF Rx Instructions: Take 1 tablet by mouth twice daily. losartan 50 mg tablet 50 mg PO DAILY Qty: 30 1RF Rx Instructions: Take 1 tablet by mouth daily Continued alprazolam 1 mg tablet 1 mg PO ONCE PRN Rx Instructions: for seizure managemewnt methadone 10 mg/5 mL solution 125 mg PO QPM Patient Comments: Verified with Dr Montoya at [facility] 03/17/2025 Rx Instructions: in addition to AM dose methadone 10 mg/5 mL solution 135 mg PO QAM Patient Comments: Verified with Dr Montoya at [facility] 03/17/2025 Rx Instructions: IN ADDITION TO PM DOSE losartan 50 mg tablet 50 mg PO DAILY Qty: 30 1RF Rx Instructions: Please take 1 tablet by mouth daily Discontinued levetiracetam 750 mg tablet 750 mg PO BID Patient Comments: TAKE 1 TABLET BY MOUTH TWICE DAILY Discharge Instructions Instructions: Where to Get Help Paying for Your Prescriptions Additional Instructions: The Keppra and Losartan were refilled and sent to the pharmacy on file. You also have been given one refill. Follow up with primary care provider in 3-5 days. Return to ED sooner if any worsening or concerns. Thank you for allowing us to care for you today Stand Alone Forms: Portal Information HPI General Mode of arrival: ambulatory. Date/Time Provider Initiated Documentation: 08/29/25 09:42. Limitations to Documentation: no limitations. Information obtained by: patient, RN notes reviewed and old records reviewed. HPI Narrative: 65 year old male the ER requesting medication refill of his losartan and Keppra. He reports that he was told by his PCP that she does not take his insurance anymore and will require a co-pay which she cannot prepare he does plan on going back to [place] in the spring primary care provider out of town which he will follow-up with. He has no other requests at this time. He does have a history of hypertension seizure disorder and PTSD. He does take methadone daily which is dosed by [facility]. Related Data Home Medications ?Medication ?Instructions ?Recorded ?Confirmed methadone 10 mg/5 mL oral solution 125 mg PO QPM 03/17/25 08/29/25 methadone 10 mg/5 mL oral solution 135 mg PO QAM 03/17/25 08/29/25 alprazolam 1 mg tablet 1 mg PO ONCE PRN 03/21/25 08/29/25 levetiracetam 750 mg tablet 750 mg PO BID Seizures #60 tabs 08/29/25 (Keppra) losartan 50 mg tablet 50 mg PO DAILY HTN #30 tabs 08/29/25 losartan 50 mg tablet 50 mg PO DAILY HTN #30 tabs 08/29/25 Previous Rx's ?Medication ?Instructions ?Recorded levetiracetam 750 mg tablet 750 mg PO BID Seizures #60 tabs 08/29/25 (Keppra) losartan 50 mg tablet 50 mg PO DAILY HTN #30 tabs 08/29/25 losartan 50 mg tablet 50 mg PO DAILY HTN #30 tabs 08/29/25 Allergies Allergy/AdvReac Type Severity Reaction Status Date / Time No Known Allergies Allergy Unverified 08/29/25 09:51 General Stated Complaint: RX Refill [place]: 4 Review of Systems All systems reviewed & are unremarkable except as noted in HPI and below Exam Const General: cooperative Nutritional Appearance: average body habitus Orientation: alert, awake and oriented x3 Course Vital Signs Vital signs: Vital Signs Temperature 36.6 C 08/29/25 09:47 Pulse 89 08/29/25 09:47 Respiratory Rate 14 08/29/25 09:47 Blood Pressure 150/99 H 08/29/25 09:47 Pulse Oximetry 98 08/29/25 09:47 Temperature 36.6 C 08/29/25 09:47 Temperature Source Tympanic 08/29/25 09:47 Pulse 89 08/29/25 09:47 Respiratory Rate 14 08/29/25 09:47 Blood Pressure 150/99 H 08/29/25 09:47 Blood Pressure Position Sitting 08/29/25 09:47 Pulse Oximetry 98 08/29/25 09:47 Oxygen Delivery Method Room Air 08/29/25 09:47 Oxygen Flow Rate 0 08/29/25 09:47 Medical Decision Making 65 year old male the ER requesting medication refill of his losartan and Keppra. He reports that he was told by his PCP that she does not take his insurance anymore and will require a co-pay which she cannot prepare he does plan on going back to [place] in the spring primary care provider out of town which he will follow-up with. He has no other requests at this time. He does have a history of hypertension seizure disorder and PTSD. He does take methadone daily which is dosed by [facility]. Prescription written with 1 refill of medications. This text was generated using [employer] dictation system, please disregard any oddities of phrase or misspellings. PFSH All Active Problems Medication refill (Acute) Medical History PTSD (post-traumatic stress disorder) Seizure disorder HTN (hypertension) Social History Smoking/Tobacco Use Status: Never Smoking risk assessment performed?: Yes Alcohol Intake: never Drug use: Occasionally Substance use type: marijuana Do you feel safe at home: Yes Do you feel safe in your relationship?: Yes
== END 2025-08-29 10:23 | disposition home or self-care (01) ==
PROVIDERS: Emergency Provider Registered Nurse Emergency
DX: Z76.0 Encounter for issue of repeat prescription (principal)
CPT/HCPCS: 99282; 99283